=== PATIENT | female | born 1950 | race Caucasian/White ===

== ENCOUNTER 2025-05-07 08:34 | Outpatient (CLI) | payer MEDICARE ==
--- NOTE | 2025-05-07 09:35 | RADIOLOGY REPORT ---
CT CT CHEST INDICATION: LUNG CONSOLIDATION EXAM DATE: 05/07/2025 08:53 AM COMPARISON: None RADIATION DOSE: CTDIvol: 10 mGy, DLP: 385 mGy*cm PROCEDURE: Helical CT images were obtained of the chest without intravenous contrast. Sagittal and c oronal reconstructions are provided. ADDITIONAL IMAGES / REFORMATS: None All CT scans at this medical facility are performed using dose modulation techniques as appropriate t o a performed exam including the following: Automated exposure control was utilized; adjustment of th e MA and/or KV according to patient size; and use of iterative reconstruction technique. FINDINGS: Bones: Scattered degenerative changes are noted. Visualized Abdomen: Moderate hiatal hernia. Colonic diverticulosis. 1.6 cm left adrenal nodule. Dilat ed CBD to 12 mm, nonspecific finding. Chest Wall: Normal. Soft tissues: Normal. Mediastinum: Normal. Heart: Coronary artery calcifications are noted. Vessels: Normal. Lymph Nodes: Normal. Pleura: Normal. Airways: Normal. Lung: Bilateral subpleural reticulation. 5 mm RLL pulmonary nodule. Other: None IMPRESSION: Bilateral subpleural reticulation can be seen with interstitial lung disease. 5 mm RLL pulmonary nodu le. Moderate hiatal hernia. Colonic diverticulosis. 1.6 cm left adrenal nodule. Dilated CBD to 12 mm, non specific finding. Fleischner Society pulmonary nodule recommendations (2017): Single solid nodule <6 mm Low-risk patients: no routine follow-up required High-risk patients: optional CT at 12 months (particularly with suspicious nodule morphology and/or upper lobe location) Solitary solid nodule 6-8 mm Low-risk patients: CT at 6-12 months, then consider CT at 18-24 months High-risk patients: CT at 6-12 months, then CT at 18-24 months Solitary solid nodule >8 mm (>250 mm3) Low-risk and high-risk patients: consider CT at 3 months, PET/CT, or tissue sampling Multiple solid nodules <6 mm Low-risk patients: no routine follow-up required High-risk patients: optional CT at 12 months Multiple solid nodules >6 mm Low-risk patients: CT at 3-6 months, then consider CT at 18-24 months High-risk patients: CT at 3-6 months, then CT at 18-24 months When multiple nodules are present, the most suspicious nodule should guide further individualized management. Solitary groundglass opacities < 6 mm require no follow-up Multiple groundglass opacities < 6 mm: CT 3-6 months. If stable consider CT at 2 , and 4 years Groundglass opacities >6 mm: follow-up in 6-12 months and then every 2 years for 5 years. Groundglass opacities greater than 6 mm with part solid component follow-up CT in 3-6 months to confirm persistence. If unchanged and solid component remains less than [address] for 5 years Multiple groundglass opacities greater than 6 mm: CT at 3-6 months. Subsequent management based on the most suspicious nodules. These recommendations do not necessarily apply to women, patients with immunosuppression or a prior history of cancer, patients with multiple nodules that are suspicious for metastasis or infection, or patients with mediastinal lymphadenopathy or pleural effusion in whom cancer is strongly suspected.
== END 2025-05-07 23:59 | disposition home or self-care (01) ==
LOC: 64 CT 08:34
PROVIDERS: ATTEND Nurse Practitioner
DX: J18.1 Lobar pneumonia, unspecified organism (principal); K44.9 Diaphragmatic hernia without obstruction or gangrene; K57.30 Diverticulosis of large intestine without perforation or abscess without bleeding; R91.1 Solitary pulmonary nodule; I25.10 Atherosclerotic heart disease of native coronary artery without angina pectoris
CPT/HCPCS: 71250